=== PATIENT | male | born 1970 | race Caucasian/White ===

== ENCOUNTER → 2016-11-04 | Outpatient (CLI) | payer BC | END | disposition home or self-care (01) | LOC: CDC 08:44 | DX: R94.31 Abnormal electrocardiogram [ECG] [EKG] (principal) | CPT/HCPCS: 93000 ==

== ENCOUNTER 2016-11-15 09:33 | Inpatient (IN) | payer BC ==
[~2016-11-15] VITALS: Ht 167.6 cm; Wt 95.0 kg
[2016-11-29] VITALS (10 sets, daily range): BP systolic 118–143; BP diastolic 81–91
[2016-11-29 07:59] LABS: BASOPHIL COUNT 0.1 K/uL (0-0.1); EOSINOPHIL (%) 7.3 % (0-5); EOSINOPHIL COUNT 0.5 K/uL (0-0.3); HEMATOCRIT 43.5 % (38.0-50.0); IMMATURE GRANULOCYTE (%) 0.7 % (0.0-0.7); IMMATURE GRANULOCYTE COUNT 0.1 K/uL; INSTRUMENT ABS NEUTROPHIL CT 3.6 K/uL; LYMPHOCYTE COUNT 1.9 K/uL (1.0-2.8); MCH 31.1 PG (29.0-34.0); MCHC 34.3 G/DL (30.0-36.0); MCV 90.8 FL (86-99); MONOCYTE (%) 10.1 % (3-12); MONOCYTE COUNT 0.7 K/uL (0-0.8); NEUTROPHIL (%) 53.4 % (45-76); NEUTROPHIL COUNT 3.6 K/uL (1.8-6.4); PLATELET COUNT 269 K/uL (156-360); RBC DIS.WIDTH-CV 12.7 % (11.8-14.6); RBC DIS.WIDTH-SD 42.1 % (39-53); RED BLOOD COUNT 4.79 M/uL (4.00-5.50); WHITE BLOOD COUNT 6.8 K/uL (4.1-10.2)
[2016-11-29 08:08] LABS: INTER. NORMALIZED RATIO 1.1; PROTHROMBIN TIME 11.2 (9.2-11.2)
[2016-11-29 08:08] LABS: CHLORIDE 107 mEq/L (99-109); POTASSIUM 4.2 mEq/L (3.7-5.4); SODIUM 139 mEq/L (136-147)
[2016-11-29 08:10] LABS: GLUCOSE 104 mg/dL (70-99)
[2016-11-29 08:12] LABS: ANION GAP 8 MEQ/L (2-14); TOTAL BILIRUBIN 0.9 mg/dL (0.0-1.0)
[2016-11-29 08:14] LABS: ALKALINE PHOSPHATASE 59 IU/L (3-129); GFR ESTIMATE (CALCULATED) > 59 mL/min/
[2016-11-29 08:15] LABS: UREA NITROGEN (BUN) 14 mg/dL (9-23)
[2016-11-29 16:27] LABS: METH RESISTANT S AUREUS PCR NEGATIVE (NEGATIVE); PROBE CHECK PASS; SPECIMEN PROCESSING CONTROL PASS
[2016-11-30] VITALS (9 sets, daily range): BP systolic 105–140; BP diastolic 74–94
[2016-11-30 08:21] LABS: HEMATOCRIT 41.7 % (38.0-50.0); MCH 32.5 PG (29.0-34.0); MCHC 34.5 G/DL (30.0-36.0); MCV 94.1 FL (86-99); MEAN PLAT.VOLUME 9.7 uM^3 (9.0-12.4); PLATELET COUNT 291 K/uL (156-360); RBC DIS.WIDTH-CV 13.2 % (11.8-14.6); RBC DIS.WIDTH-SD 44.9 % (39-53); RED BLOOD COUNT 4.43 M/uL (4.00-5.50); WHITE BLOOD COUNT 15.7 K/uL (4.1-10.2)
[2016-11-30 08:36] LABS: ANION GAP 7 MEQ/L (2-14); CHLORIDE 98 MEQ/L (99-109); GFR ESTIMATE (CALCULATED) > 59 mL/min/; GLUCOSE 124 mg/dL (70-99); POTASSIUM 4.7 MEQ/L (3.7-5.4); SAMPLE HEMOLYSIS CHECK 0; SAMPLE ICTERIC CHECK 0; SAMPLE LIPEMIA CHECK 0; SODIUM 135 MEQ/L (136-147); UREA NITROGEN (BUN) 14 mg/dL (9-23)
[2016-12-01] VITALS (8 sets, daily range): BP systolic 105–142; BP diastolic 77–92
[2016-12-02] VITALS (7 sets, daily range): BP systolic 0–137; BP diastolic 0–100
[2016-12-03] VITALS (7 sets, daily range): BP systolic 108–127; BP diastolic 74–86
[2016-12-04 03:32] VITALS: BP 112/80
[2016-12-04 08:00] VITALS: BP 0/0; BP 110/61; BP 130/73
[2016-12-04 12:00] VITALS: BP 127/77
[2016-12-04 15:00] VITALS: BP 0/0; BP 130/73
[2016-12-04 16:00] VITALS: BP 127/79
[2016-12-04 20:00] VITALS: BP 118/75
[2016-12-05] VITALS: BP 112/73
[2016-12-05 04:00] VITALS: BP 127/82
[2016-12-05] MEDS ORDERED: HYDROCODON-ACE1 EAC7 PO (07:21)
[2016-12-05] MEDS ORDERED: DOCUSATE SODIU100 MG PO (07:21)
[2016-12-05] MEDS ORDERED: LOPRESSOR25 MG PO (07:21)
== END 2016-12-05 08:32 | disposition home or self-care (01) | DRG 165 ==
LOC: 2SOUTH 09:33 → 4WEST 11-29 11:59 → 2SOUTH 11-29 13:39 → 4WEST 11-29 14:45 → 2SOUTH 12-05 09:45
PROVIDERS: Thoracic Surgery (Cardiothoracic Vascular Surgery)
PROC: 0BTF0ZZ Resection of Right Lower Lung Lobe, Open Approach (ICD-10-PCS; principal; 2016-11-29)
DX: R91.8 Other nonspecific abnormal finding of lung field (principal); I10 Essential (primary) hypertension; Z87.442 Personal history of urinary calculi
CPT/HCPCS: 71010; 71020; 80048; 80053; 85025; 85027; 85610; 86900; 86901; 86920; 87070; 87075; 87102; 87116; 87205; 87206; 87641; 88300; 88307; 88311; 88331; 94640; 94799; J0690; J1650; J1885; J2250; J2710; J3010; J7040; J7050; J7120; S0020

== ENCOUNTER 2017-10-10 13:29 | Emergency (ER) | payer BC ==
[~2017-10-10] VITALS: Ht 170.2 cm; Wt 92.9 kg
[~2017-10-10 13:29] MED LIST: DOCUSATE SODIU100 MG PO; HYDROCODON-ACE1 EAC7 PO; LOPRESSOR25 MG PO
[2017-10-10 14:13] LABS: HEMATOCRIT 42.8 % (38.0-50.0); HEMOGLOBIN 14.6 G/DL (12.5-16.6); MCH 31.2 PG (29.0-34.0); MCHC 34.1 G/DL (30.0-36.0); MCV 91.5 FL (86-99); PLATELET COUNT 306 K/uL (156-360); RBC DIS.WIDTH-CV 12.6 % (11.8-14.6); RBC DIS.WIDTH-SD 41.6 % (39-53); RED BLOOD COUNT 4.68 M/uL (4.00-5.50); WHITE BLOOD COUNT 11.3 K/uL (4.1-10.2)
[2017-10-10 14:14] LABS: APPEARANCE CLEAR ((CLEAR)); BILIRUBIN NEGATIVE; BLOOD MODERATE; COLOR YELLOW ((YELLOW)); GLUCOSE (STRIP) NEGATIVE; KETONES 20; LEUKOCYTES NEGATIVE; NITRITE NEGATIVE; PROTEIN (STRIP) 30; SPECIFIC GRAVITY 1.029 (1.000-1.030); UROBILINOGEN 0.2 MG/DL (0.2-1.0)
[2017-10-10 14:22] LABS: ALBUMIN 4.4 g/dL (3.2-4.8); CHLORIDE 100 mEq/L (99-109); POTASSIUM 4.1 mEq/L (3.7-5.4); SODIUM 137 mEq/L (136-147)
[2017-10-10 14:23] LABS: BACTERIA NONE SEEN /HPF; EPITHELIAL CELLS NONE SEEN /HPF; MUCUS TRACE /LPF; RED BLOOD CELLS 30-40 /HPF (0-5); UCUL ADDED? NO; WHITE BLOOD CELLS 0-5 /HPF (0-5)
[2017-10-10 14:24] LABS: GLUCOSE 112 mg/dL (70-99); TOTAL PROTEIN 7.2 g/dL (6.4-8.3)
[2017-10-10 14:26] LABS: TOTAL BILIRUBIN 1.4 mg/dL (0.0-1.0)
[2017-10-10 14:28] LABS: ALKALINE PHOSPHATASE 77 IU/L (3-129); GFR ESTIMATE (CALCULATED) 38 mL/min/ (58.99-99999)
[2017-10-10 14:29] LABS: UREA NITROGEN (BUN) 16 mg/dL (9-23)
[2017-10-10 14:30] LABS: AST (GOT) 19 IU/L (2-34)
[2017-10-10 14:31] LABS: ALT (GPT) 21 IU/L (3-49)
[2017-10-10 14:52] LABS: LIPASE 5 U/L (1.0-51.0)
[2017-10-10] MEDS ORDERED: ZOFRAN ODT4 MG PO (15:24)
[2017-10-10] MEDS ORDERED: TORADOL10 MG PO (15:24)
[2017-10-10] MEDS ORDERED: FLOMAX0.4 MG PO (15:24)
[2017-10-10] MEDS ORDERED: PERCOCET 5/31 TABLET PO (15:24)
[2017-10-10 15:47] VITALS: BP 142/97
== END 2017-10-10 15:49 | disposition home or self-care (01) ==
LOC: EME 13:29
PROVIDERS: Nurse Practitioner Acute Care
DX: N13.2 Hydronephrosis with renal and ureteral calculous obstruction (principal); Z87.442 Personal history of urinary calculi; F32.9 Major depressive disorder, single episode, unspecified; Z90.49 Acquired absence of other specified parts of digestive tract
CPT/HCPCS: 74176; 80053; 81003; 83690; 85027; 99281; 99284; J1885